=== PATIENT | female | born 1960 | race Caucasian/White ===

== ENCOUNTER 2019-05-03 07:21 | Emergency (ER) | payer OTHER ==
[2019-05-03 07:33] VITALS: BP 158/96; PULSE 75
[2019-05-03] MEDS ORDERED: Sodium Chloride 0.9% 10 ML Syringe FLUSH PRN (07:53)
[2019-05-03] MEDS ORDERED: Ondansetron 4 MG/2 ML SDV IVPUSH ONE (07:55)
[2019-05-03] MEDS ORDERED: fentaNYL 100 MCG/2 ML SDV IVPUSH ONE (07:55)
--- NOTE | 2019-05-03 07:57 | EDM.PDOC ---
ED HPI GENERAL MEDICAL PROBLEM - General Chief Complaint: Abdominal Pain Stated Complaint: ABD PAIN Time Seen by Provider: 05/03/19 07:48 Source of Information: Reports: Patient, Family, RN Notes Reviewed History Limitations: Reports: No Limitations - History of Present Illness INITIAL COMMENTS - FREE TEXT/NARRATIVE: 58-year-old female presents to the emergency department today complaint of abdominal pain, she stated since has developed over the last 24 hours it will wax and wane can be quite intense rates her pain 10 out of 10. She is nauseated no vomiting she still passing gas does have a past surgical history of a cholecystectomy as well as a tubal ligation. abominal Pain Score (Numeric/FACES): 7 - Related Data Allergies Allergy/AdvReac Type Severity Reaction Status Date / Time cephalexin monohydrate Allergy Cannot Verified 05/03/19 07:35 [From Keflex] Remember erythromycin base Allergy Cannot Verified 05/03/19 07:35 [Erythromycin Base] Remember lisinopril Allergy Other Verified 05/03/19 07:35 Penicillins Allergy Cannot Verified 05/03/19 07:35 Remember Home Meds: Home Meds NK [No Known Home Meds] 10/05/18 [History] Past Medical History Cardiovascular History: Reports: Heart Murmur, Hypertension Gastrointestinal History: Reports: Bowel Obstruction, Chronic Constipation, Colon Polyp 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: Musculoskeletal History: Reports: Back Pain, Chronic Endocrine/Metabolic History: Reports: Obesity/BMI 30+ - Infectious Disease History Infectious Disease History: Reports: Chicken Pox, Shingles - Past Surgical History Cardiovascular Surgical History: Reports: None GI Surgical History: Reports: Cholecystectomy, Colonoscopy, Polypectomy Female Surgical History: Reports: Tubal Ligation Endocrine Surgical History: Reports: None Musculoskeletal Surgical History: Reports: None Dermatological Surgical History: Reports: None Social & Family History - Tobacco Use Smoking Status *Q: Never Smoker - Caffeine Use Caffeine Use: Reports: Coffee - Recreational Drug Use Recreational Drug Use: No ED ROS GENERAL - Review of Systems Review Of Systems: See Below Constitutional: Denies: Fever, Chills HEENT: Reports: No Symptoms Respiratory: Reports: No Symptoms Cardiovascular: Reports: No Symptoms GI/Abdominal: Reports: Abdominal Pain, Flatus, Nausea. Denies: Constipation, Diarrhea, Vomiting : Reports: No Symptoms Musculoskeletal: Reports: No Symptoms Skin: Reports: No Symptoms Neurological: Reports: No Symptoms ED EXAM, GI/ABD - Physical Exam Exam: See Below Exam Limited By: No Limitations General Appearance: Alert, WD/WN, No Apparent Distress Respiratory/Chest: No Respiratory Distress, Lungs Clear, Normal Breath Sounds, No Accessory Muscle Use, Chest Non-Tender Cardiovascular: Regular Rate, Rhythm, No Murmur GI/Abdominal Exam: Normal Bowel Sounds, Soft, No Organomegaly, No Distention, Guarding, Tender (Epigastric) Course - Vital Signs Last Recorded V/S: Last Vital Signs Temp 98.5 F 05/03/19 07:34 Pulse 75 05/03/19 07:34 Resp 20 05/03/19 07:34 BP 158/96 H 05/03/19 07:34 Pulse Ox 94 L 05/03/19 07:34 - Orders/Labs/Meds Orders: Active Orders 24 hr Category Date Time Status Peripheral IV Care [RC] . DIRECTED Care 05/03/19 07:54 Active Lactated Ringers [Ringers, Lactated] 1,000 ml Med 05/03/19 08:00 Active IV ASDIRECTED Sodium Chloride 0.9% [Normal Saline] 83 ml Med 05/03/19 08:15 Active IV ASDIRECTED Sodium Chloride 0.9% [Saline Flush] Med 05/03/19 07:53 Active 10 ml FLUSH ASDIRECTED PRN Peripheral IV Insertion Adult [OM.PC] Urgent Oth 05/03/19 07:53 Ordered Medication Orders Lactated Ringer's (Ringers, Lactated) 1,000 mls @ 999 mls/hr IV ASDIRECTED ANNALISE Last Admin: 05/03/19 08:09 Dose: 999 mls/hr Sodium Chloride (Normal Saline) 83 mls @ 3.5 mls/sec IV ASDIRECTED ANNALISE Last Admin: 05/03/19 08:18 Dose: 3.5 mls/sec Sodium Chloride (Saline Flush) 10 ml FLUSH ASDIRECTED PRN PRN Reason: Keep Vein Open Last Admin: 05/03/19 08:09 Dose: 10 ml Labs: Laboratory Tests 05/03/19 05/03/19 05/03/19 Range/Units 07:53 08:08 08:08 WBC 4.1 L (4.5-11.0) K/uL RBC 4.78 (3.30-5.50) M/uL Hgb 14.4 (12.0-15.0) g/dL Hct 42.6 (36.0-48.0) % MCV 89 (80-98) fL MCH 30 (27-31) pg MCHC 34 (32-36) % Plt Count 220 (150-400) K/uL Neut % (Auto) 52 (36-66) % Lymph % (Auto) 33 (24-44) % [place] % (Auto) 10 H (2-6) % Eos % (Auto) 4 (2-4) % Baso % (Auto) 1 (0-1) % Sodium 141 (140-148) mmol/L Potassium 4.5 (3.6-5.2) mmol/L Chloride 105 (100-108) mmol/L Carbon Dioxide 27 (21-32) mmol/L Anion Gap 9.0 (5.0-14.0) mmol/L BUN 13 (7-18) mg/dL Creatinine 0.7 (0.6-1.0) mg/dL Est Cr Clr Drug Dosing 87.29 mL/min Estimated GFR (MDRD) > 60 (>60) Glucose 108 H (74-106) mg/dL Lactic Acid (0.4-2.0) mmol/L Calcium 9.3 (8.5-10.1) mg/dL Total Bilirubin 0.4 (0.2-1.0) mg/dL AST 23 (15-37) U/L ALT 44 (12-78) U/L Alkaline Phosphatase 62 (46-116) U/L Troponin I < 0.017 (0.000-0.056) ng/mL Total Protein 6.9 (6.4-8.2) g/dL Albumin 3.7 (3.4-5.0) g/dL Globulin 3.2 (2.3-3.5) g/dL Albumin/Globulin Ratio 1.2 (1.2-2.2) Lipase 106 (73-393) U/L Urine Color Yellow Urine Appearance Slightly cloudy Urine pH 7.0 (4.5-8.0) Ur Specific [place] 1.010 (1.008-1.030) Urine Protein Negative (NEGATIVE) mg/dL Urine Glucose (UA) Normal (NEGATIVE) mg/dL Urine Ketones Negative (NEGATIVE) mg/dL Urine Occult Blood Trace (NEGATIVE) Urine Nitrite Negative (NEGATIVE) Urine Bilirubin Negative (NEGATIVE) Urine Urobilinogen Normal (NORMAL) mg/dL Ur Leukocyte Esterase Small (NEGATIVE) Urine RBC 0-5 (0-5) Urine WBC 5-10 H (0-5) Ur Epithelial Cells Moderate Amorphous Sediment Not seen Urine Bacteria Few Urine Mucus Not seen 05/03/19 Range/Units 08:08 WBC (4.5-11.0) K/uL RBC (3.30-5.50) M/uL Hgb (12.0-15.0) g/dL Hct (36.0-48.0) % MCV (80-98) fL MCH (27-31) pg MCHC (32-36) % Plt Count (150-400) K/uL Neut % (Auto) (36-66) % Lymph % (Auto) (24-44) % [place] % (Auto) (2-6) % Eos % (Auto) (2-4) % Baso % (Auto) (0-1) % Sodium (140-148) mmol/L Potassium (3.6-5.2) mmol/L Chloride (100-108) mmol/L Carbon Dioxide (21-32) mmol/L Anion Gap (5.0-14.0) mmol/L BUN (7-18) mg/dL Creatinine (0.6-1.0) mg/dL Est Cr Clr Drug Dosing mL/min Estimated GFR (MDRD) (>60) Glucose (74-106) mg/dL Lactic Acid 0.9 (0.4-2.0) mmol/L Calcium (8.5-10.1) mg/dL Total Bilirubin (0.2-1.0) mg/dL AST (15-37) U/L ALT (12-78) U/L Alkaline Phosphatase (46-116) U/L Troponin I (0.000-0.056) ng/mL Total Protein (6.4-8.2) g/dL Albumin (3.4-5.0) g/dL Globulin (2.3-3.5) g/dL Albumin/Globulin Ratio (1.2-2.2) Lipase (73-393) U/L Urine Color Urine Appearance Urine pH (4.5-8.0) Ur Specific [place] (1.008-1.030) Urine Protein (NEGATIVE) mg/dL Urine Glucose (UA) (NEGATIVE) mg/dL Urine Ketones (NEGATIVE) mg/dL Urine Occult Blood (NEGATIVE) Urine Nitrite (NEGATIVE) Urine Bilirubin (NEGATIVE) Urine Urobilinogen (NORMAL) mg/dL Ur Leukocyte Esterase (NEGATIVE) Urine RBC (0-5) Urine WBC (0-5) Ur Epithelial Cells Amorphous Sediment Urine Bacteria Urine Mucus Meds: Medications Generic Name Dose Route Start Last Admin Trade Name Freq PRN Reason Stop Dose Admin Lactated Ringer's 1,000 mls @ 999 mls/hr 05/03/19 08:00 05/03/19 08:09 Ringers, Lactated IV 999 mls/hr ASDIRECTED ANNALISE Administration Sodium Chloride 83 mls @ 3.5 mls/sec 05/03/19 08:15 05/03/19 08:18 Normal Saline IV 3.5 mls/sec ASDIRECTED ANNALISE Administration Sodium Chloride 10 ml 05/03/19 07:53 05/03/19 08:09 Saline Flush FLUSH 10 ml ASDIRECTED PRN Administration Keep Vein Open Discontinued Medications Generic Name Dose Route Start Last Admin Trade Name Freq PRN Reason Stop Dose Admin Fentanyl 50 mcg 05/03/19 07:55 05/03/19 08:09 Sublimaze IVPUSH 05/03/19 07:56 50 mcg ONETIME ONE Administration Iopamidol 142 ml 05/03/19 08:02 05/03/19 08:18 Isovue-300 IV 05/03/19 08:03 142 ml ONETIME ONE Administration Ondansetron HCl 4 mg 05/03/19 07:55 05/03/19 08:08 Zofran IVPUSH 05/03/19 07:56 4 mg ONETIME ONE Administration Departure - Departure Time of Disposition: 09:02 Disposition: Home, Self-Care 01 Condition: Fair Clinical Impression: Abdominal pain Qualifiers: Abdominal location: epigastric Qualified Code(s): R10.13 - Epigastric pain - Discharge Information Instructions: Abdominal Pain, Adult, [id number] Referrals: Lebron Bryson MD [Primary Care Provider] - Forms: ED Department Discharge Additional Instructions: Continue with regular medications, Please followup with your primary care provider in 3-5 days if not better, please call return to the emergency department with worsening of symptoms. - My Orders Last 24 Hours: My Active Orders 05/03/19 07:53 Sodium Chloride 0.9% [Saline Flush] 10 ml FLUSH ASDIRECTED PRN Peripheral IV Insertion Adult [OM.PC] Urgent 05/03/19 07:54 Peripheral IV Care [RC] . DIRECTED 05/03/19 08:00 Lactated Ringers [Ringers, Lactated] 1,000 ml IV ASDIRECTED 05/03/19 08:15 Sodium Chloride 0.9% [Normal Saline] 83 ml IV ASDIRECTED - Assessment/Plan Last 24 Hours: My Active Orders 05/03/19 07:53 Sodium Chloride 0.9% [Saline Flush] 10 ml FLUSH ASDIRECTED PRN Peripheral IV Insertion Adult [OM.PC] Urgent 05/03/19 07:54 Peripheral IV Care [RC] . DIRECTED 05/03/19 08:00 Lactated Ringers [Ringers, Lactated] 1,000 ml IV ASDIRECTED 05/03/19 08:15 Sodium Chloride 0.9% [Normal Saline] 83 ml IV ASDIRECTED Plan: Assessment Acuity = acute Site and laterality = epigastric pain Etiology = unclear etiology suspicious for GERD Manifestations = none Location of injury = Home Lab values = CBC, CMP, troponin, CT scan of the abdomen, urinalysis unremarkable Plan She had some relief with fentanyl and Zofran provided in the ED I did offer her a GI cocktail which she declined, follow-up with her primary care in the next 3- 5 days for reevaluation This note was dictated using [employer] voice recognition software please call with any questions on syntax or grammar.
[2019-05-03] MEDS ORDERED: Lactated Ringers 1,000 ML IV SCH (08:00)
[2019-05-03] MEDS ORDERED: Iopamidol 500 ML BOTTLE IV ONE (08:02)
--- NOTE | 2019-05-03 08:42 | CRLCT ---
HISTORY: Epigastric abdominal pain. TECHNIQUE: Intravenous contrast enhanced CT of the abdomen and pelvis. 140 mL of Isovue-300 intravenous contrast administered. COMPARISON: No prior. FINDINGS: Prior cholecystectomy. Dilatation of the extrahepatic bile duct and mild prominence of the intrahepatic biliary ductal system may relate to postcholecystectomy reservoir effect though may be correlated with LFTs. No liver mass. Spleen and right adrenal gland are normal. Mild thickening of the left adrenal gland. No focal pancreatic abnormality or acute peripancreatic inflammatory change. Symmetric nephrograms. No renal mass or hydronephrosis. No obstructive urinary calculus. Urinary bladder does not appear overly distended. Pelvic calcifications compatible with phleboliths. - No small bowel obstruction. No appendicitis. No diverticulitis. No fluid collection or free air. No abdominal aortic aneurysm. - Degenerative changes of the hips and sacroiliac joints. Degenerative changes of the spine. No acute fractures. - No consolidation within the lung bases nor pleural effusion. IMPRESSION: 1. No specific identified cause of the patient`s pain. 2. Changes of prior cholecystectomy. Dilatation of the biliary system may relate to postcholecystectomy reservoir effect though may be correlated with LFTs. 3. No hydronephrosis or obstructive urinary calculus. 4. No diverticulitis, appendicitis or bowel obstruction. Dictated by Sanjay Contreras MD @ 05/03/2019 8:39:51 AM Please note that all CT scans at this facility use dose modulation, iterative reconstruction, and/or weight-based dosing when appropriate to reduce radiation dose to as low as reasonably achievable. Dictated by: Sanjay Contreras MD @ 05/03/2019 08:39:59 (Electronically Signed)
== END 2019-05-03 09:17 | disposition home or self-care (01) ==
LOC: JP.ED 07:21
DX: R10.13 Epigastric pain (principal); I10 Essential (primary) hypertension; E66.9 Obesity, unspecified; Z68.32 Body mass index [BMI] 32.0-32.9, adult; Z88.0 Allergy status to penicillin; Z88.8 Allergy status to other drugs, medicaments and biological substances; Z88.1 Allergy status to other antibiotic agents
CPT/HCPCS: 36415; 74177; 80053; 81001; 83605; 83690; 84484; 85025; 96361; 96374; 96375; 99284; J2405; J3010; J7030; J7120; Q9967

== ENCOUNTER 2019-05-04 06:33 | Observation (INO) | payer OTHER ==
[2019-05-04] MEDS ORDERED: Ondansetron 4 MG/2 ML SDV IVPUSH ONE (07:29)
[2019-05-04] MEDS ORDERED: Sodium Chloride 0.9% 1,000 ML IV SCH ×2 (07:30→09:15)
[2019-05-04] MEDS ORDERED: HYDROmorphone 0.5 MG/0.5 ML Syringe IVPUSH ONE ×2 (07:30→10:09)
--- NOTE | 2019-05-04 08:08 | EDM.PDOC ---
ED HPI GENERAL MEDICAL PROBLEM - General Chief Complaint: Abdominal Pain Stated Complaint: ABD PAIN RADIATING TO BACK Time Seen by Provider: 05/04/19 08:05 Source of Information: Reports: Patient History Limitations: Reports: No Limitations - History of Present Illness INITIAL COMMENTS - FREE TEXT/NARRATIVE: pt arrived with pain in the epigastric area going around to the left side and into her back She has had a vincent about 15 years ago. She did have a common duct stone at that time. She has been under alot of stress with work and her family. Onset: Other ( started the nite before and comes and goes. She did pass some hard stool. ) Duration: Hour(s): Location: Reports: Abdomen Associated Symptoms: Reports: Nausea/Vomiting Left Abdomen Pain Score (Numeric/FACES): 3 - Related Data Allergies Allergy/AdvReac Type Severity Reaction Status Date / Time cephalexin monohydrate Allergy Cannot Verified 05/04/19 07:05 [From Keflex] Remember erythromycin base Allergy Cannot Verified 05/04/19 07:05 [Erythromycin Base] Remember lisinopril Allergy Other Verified 05/04/19 07:05 Penicillins Allergy Cannot Verified 05/04/19 07:05 Remember Home Meds: Home Meds NK [No Known Home Meds] 10/05/18 [History] Past Medical History Cardiovascular History: Reports: Heart Murmur, Hypertension Gastrointestinal History: Reports: Bowel Obstruction, Chronic Constipation, Colon Polyp 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: Musculoskeletal History: Reports: Back Pain, Chronic Endocrine/Metabolic History: Reports: Obesity/BMI 30+ - Infectious Disease History Infectious Disease History: Reports: Chicken Pox, Measles, Mumps, Shingles - Past Surgical History Cardiovascular Surgical History: Reports: None GI Surgical History: Reports: Cholecystectomy, Colonoscopy, Polypectomy Female Surgical History: Reports: Tubal Ligation Endocrine Surgical History: Reports: None Musculoskeletal Surgical History: Reports: None Dermatological Surgical History: Reports: None Social & Family History - Tobacco Use Smoking Status *Q: Former Smoker Years of Tobacco use: 5 Packs/Tins Daily: 0.5 Used Tobacco, but Quit: Yes Month/Year Tobacco Last Used: 08/2000 Tobacco Use Comment: social smoker not daily cannot remember when quit - Caffeine Use Caffeine Use: Reports: Coffee - Recreational Drug Use Recreational Drug Use: No ED ROS GENERAL - Review of Systems Review Of Systems: See Below Constitutional: Reports: Decreased Appetite HEENT: Reports: No Symptoms Respiratory: Reports: No Symptoms Cardiovascular: Reports: No Symptoms Endocrine: Reports: No Symptoms GI/Abdominal: Reports: Abdominal Pain, Decreased Appetite, Nausea, Vomiting : Reports: No Symptoms Musculoskeletal: Reports: No Symptoms Skin: Reports: No Symptoms ED EXAM, GI/ABD - Physical Exam Exam: See Below Text/Narrative:: pt arrived with severe abdomanal pain once again. She vomited during the nite and was very uncomfortable. She had a pain level of a 8 on arrival. Exam Limited By: No Limitations General Appearance: Alert, Severe Distress, Other (pupils are equal and reactive. ) Ears: Normal TMs Nose: Normal Inspection Throat/Mouth: Normal Inspection Head: Atraumatic Neck: Normal Inspection Respiratory/Chest: No Respiratory Distress Cardiovascular: Regular Rate, Rhythm GI/Abdominal Exam: Other ( tender in the epigastric area and left upper abdoman. She is tender but not guarded. ) (Female) Exam: Deferred Rectal (Female) Exam: Deferred Back Exam: Normal Inspection Extremities: Normal Inspection Neurological: Alert, Oriented, Normal Cognition Psychiatric: Anxious, Other ( uncomfortable. ) Course - Vital Signs Last Recorded V/S: Last Vital Signs Temp 36.8 C 05/04/19 07:18 Pulse 60 05/04/19 08:51 Resp 14 05/04/19 08:51 BP 142/81 H 05/04/19 08:51 Pulse Ox 94 L 05/04/19 08:51 - Orders/Labs/Meds Orders: Active Orders 24 hr Category Date Time Status Sodium Chloride 0.9% [Normal Saline] 1,000 ml Med 05/04/19 07:30 Active IV ASDIRECTED Sodium Chloride 0.9% [Normal Saline] 1,000 ml Med 05/04/19 09:15 Ordered IV ASDIRECTED Medication Orders Sodium Chloride (Normal Saline) 1,000 mls @ 999 mls/hr IV ASDIRECTED ANNALISE Last Admin: 05/04/19 07:34 Dose: 999 mls/hr Sodium Chloride (Normal Saline) 1,000 mls @ 999 mls/hr IV ASDIRECTED ANNALISE Labs: Laboratory Tests 05/04/19 05/04/19 05/04/19 Range/Units 07:32 07:40 07:40 WBC 4.5 (4.5-11.0) K/uL RBC 4.77 (3.30-5.50) M/uL Hgb 14.2 (12.0-15.0) g/dL Hct 41.7 (36.0-48.0) % MCV 87 (80-98) fL MCH 30 (27-31) pg MCHC 34 (32-36) % Plt Count 216 (150-400) K/uL Neut % (Auto) 61 (36-66) % Lymph % (Auto) 26 (24-44) % [place] % (Auto) 9 H (2-6) % Eos % (Auto) 3 (2-4) % Baso % (Auto) 0 (0-1) % Sodium (140-148) mmol/L Potassium (3.6-5.2) mmol/L Chloride (100-108) mmol/L Carbon Dioxide (21-32) mmol/L Anion Gap (5.0-14.0) mmol/L BUN (7-18) mg/dL Creatinine (0.6-1.0) mg/dL Est Cr Clr Drug Dosing mL/min Estimated GFR (MDRD) (>60) Glucose (74-106) mg/dL Calcium (8.5-10.1) mg/dL Total Bilirubin (0.2-1.0) mg/dL AST (15-37) U/L ALT (12-78) U/L Alkaline Phosphatase (46-116) U/L C-Reactive Protein 0.01 (0.0-0.3) mg/dL Total Protein (6.4-8.2) g/dL Albumin (3.4-5.0) g/dL Globulin (2.3-3.5) g/dL Albumin/Globulin Ratio (1.2-2.2) Amylase (25-115) U/L Lipase (73-393) U/L Urine Color Yellow Urine Appearance Clear Urine pH 5.0 (4.5-8.0) Ur Specific [place] 1.025 (1.008-1.030) Urine Protein Negative (NEGATIVE) mg/dL Urine Glucose (UA) Normal (NEGATIVE) mg/dL Urine Ketones Negative (NEGATIVE) mg/dL Urine Occult Blood Negative (NEGATIVE) Urine Nitrite Negative (NEGATIVE) Urine Bilirubin Negative (NEGATIVE) Urine Urobilinogen Normal (NORMAL) mg/dL Ur Leukocyte Esterase Negative (NEGATIVE) Urine RBC 0-5 (0-5) Urine WBC 0-5 (0-5) Ur Epithelial Cells Many Amorphous Sediment Rare Urine Bacteria Not seen Urine Mucus Not seen 05/04/19 05/04/19 Range/Units 07:40 08:04 WBC (4.5-11.0) K/uL RBC (3.30-5.50) M/uL Hgb (12.0-15.0) g/dL Hct (36.0-48.0) % MCV (80-98) fL MCH (27-31) pg MCHC (32-36) % Plt Count (150-400) K/uL Neut % (Auto) (36-66) % Lymph % (Auto) (24-44) % [place] % (Auto) (2-6) % Eos % (Auto) (2-4) % Baso % (Auto) (0-1) % Sodium 138 L (140-148) mmol/L Potassium 4.2 (3.6-5.2) mmol/L Chloride 103 (100-108) mmol/L Carbon Dioxide 29 (21-32) mmol/L Anion Gap 10.2 (5.0-14.0) mmol/L BUN 9 (7-18) mg/dL Creatinine 0.8 (0.6-1.0) mg/dL Est Cr Clr Drug Dosing 77.75 mL/min Estimated GFR (MDRD) > 60 (>60) Glucose 99 (74-106) mg/dL Calcium 9.2 (8.5-10.1) mg/dL Total Bilirubin 0.5 (0.2-1.0) mg/dL AST 22 (15-37) U/L ALT 42 (12-78) U/L Alkaline Phosphatase 63 (46-116) U/L C-Reactive Protein (0.0-0.3) mg/dL Total Protein 6.9 (6.4-8.2) g/dL Albumin 3.7 (3.4-5.0) g/dL Globulin 3.2 (2.3-3.5) g/dL Albumin/Globulin Ratio 1.2 (1.2-2.2) Amylase 35 (25-115) U/L Lipase 123 (73-393) U/L Urine Color Urine Appearance Urine pH (4.5-8.0) Ur Specific [place] (1.008-1.030) Urine Protein (NEGATIVE) mg/dL Urine Glucose (UA) (NEGATIVE) mg/dL Urine Ketones (NEGATIVE) mg/dL Urine Occult Blood (NEGATIVE) Urine Nitrite (NEGATIVE) Urine Bilirubin (NEGATIVE) Urine Urobilinogen (NORMAL) mg/dL Ur Leukocyte Esterase (NEGATIVE) Urine RBC (0-5) Urine WBC (0-5) Ur Epithelial Cells Amorphous Sediment Urine Bacteria Urine Mucus Meds: Medications Generic Name Dose Route Start Last Admin Trade Name Freq PRN Reason Stop Dose Admin Sodium Chloride 1,000 mls @ 999 mls/hr 05/04/19 07:30 05/04/19 07:34 Normal Saline IV 999 mls/hr ASDIRECTED ANNALISE Administration Sodium Chloride 1,000 mls @ 999 mls/hr 05/04/19 09:15 Normal Saline IV ASDIRECTED ANNALISE Discontinued Medications Generic Name Dose Route Start Last Admin Trade Name Freq PRN Reason Stop Dose Admin Al Hydroxide/Mg Hydroxide 15 0 ml 05/04/19 08:22 05/04/19 08:51 ml/ Lidocaine HCl 15 ml PO 05/04/19 08:23 30 ml ONETIME ONE Administration Hydromorphone HCl 0.5 mg 05/04/19 07:30 05/04/19 07:46 Dilaudid IVPUSH 05/04/19 07:31 0.5 mg ONETIME ONE Administration Ondansetron HCl 4 mg 05/04/19 07:29 05/04/19 07:47 Zofran IVPUSH 05/04/19 07:30 4 mg ONETIME ONE Administration Pantoprazole Sodium 40 mg 05/04/19 08:58 05/04/19 09:12 Protonix Iv IVPUSH 05/04/19 08:59 40 mg ONETIME ONE Administration - Re-Assessments/Exams Free Text/Narrative Re-Assessment/Exam: 05/04/19 09:16 pt had repeat lab workk. She did not have blood in the urine, her liver enzymes are normal, Her pancreatic enzymes are normal. Her crp is not elevated. She had a cat scan yesterday which was un remarkable. Departure - Departure Time of Disposition: 09:18 Disposition: Admitted As Inpatient 65 Condition: Fair Clinical Impression: Abdominal pain Qualifiers: Abdominal location: epigastric Qualified Code(s): R10.13 - Epigastric pain - Discharge Information Referrals: Lebron Bryson MD [Primary Care Provider] - Forms: ED Department Discharge Care Plan Goals: admit to Dr bonilla. - My Orders Last 24 Hours: My Active Orders 05/04/19 07:30 Sodium Chloride 0.9% [Normal Saline] 1,000 ml IV ASDIRECTED 05/04/19 09:15 Sodium Chloride 0.9% [Normal Saline] 1,000 ml IV ASDIRECTED - Assessment/Plan Last 24 Hours: My Active Orders 05/04/19 07:30 Sodium Chloride 0.9% [Normal Saline] 1,000 ml IV ASDIRECTED 05/04/19 09:15 Sodium Chloride 0.9% [Normal Saline] 1,000 ml IV ASDIRECTED
[2019-05-04] MEDS ORDERED: Alum Hydrox/Mag Hydrox/Simeth 15 ML, Lidocaine 2% 15 ML PO ONE ×2 (08:22)
[2019-05-04] MEDS ORDERED: Pantoprazole 40 MG Vial IVPUSH ONE (08:58)
--- NOTE | 2019-05-04 09:51 | CRLCR ---
CHEST 1 VIEW AP INDICATION: Left upper abdominal pain and short of breath IMPRESSION: Normal heart size and vascular pattern. Lungs are clear of focal opacities. No pneumothorax or pleural abnormality. Dictated by Ricardo Walsh MD @ May 04 2019 9:47AM Signed by Dr. Ricardo Walsh @ May 04 2019 9:49AM
--- NOTE | 2019-05-04 10:38 | PCM.HP ---
H&P History of Present Illness - General Date of Service: 05/04/19 Admit Problem/Dx: Admission Diagnosis/Problem Admission Diagnosis/Problem Epigastric pain Source of Information: Patient History Limitations: Reports: No Limitations - History of Present Illness Initial Comments - Free Text/Narative: CC: my stomach hurts HPI: Stephy presents to the emergency room today with persistent epigastric abdominal pain. Pain started more than 48 hours ago and has persisted at a moderately severe level. She describes burning severe epigastric pain that radiates to her back. Pain is relatively constant though she does have some shooting pains that are even more intense. She hasn't found anything to help the pain and has tried narcotics, wyrc-der-gfdeoxc medications, famotidine and a GI cocktail this morning. Nothing seems to make the pain worse. She had 2 pieces of toast eat last night but has not had anything for 2 days prior to that. Oral intake of fluids has been poor. She is under a lot of stress. She does not have a history of ulcers. She has had some nausea but no vomiting. No fevers. No shortness of breath. No change in bowel or bladder habits. No recent travel, suspect food ingestion or other sick family members at home. Workup in the emergency room today included normal laboratory testing. Workup yesterday included normal laboratory testing as well as a normal CT scan of the abdomen and pelvis. Patient will be admitted for pain control and expedited workup with her severe pain. Left Abdomen Pain Score (Numeric/FACES): 3 - Related Data Allergies/Adverse Reactions: Allergies Allergy/AdvReac Type Severity Reaction Status Date / Time cephalexin monohydrate Allergy Cannot Verified 05/04/19 07:05 [From Keflex] Remember erythromycin base Allergy Cannot Verified 05/04/19 07:05 [Erythromycin Base] Remember lisinopril Allergy Other Verified 05/04/19 07:05 Penicillins Allergy Cannot Verified 05/04/19 07:05 Remember Home Medications: Home Meds NK [No Known Home Meds] 10/05/18 [History] Past Medical History Cardiovascular History: Reports: Heart Murmur, Hypertension Gastrointestinal History: Reports: Bowel Obstruction, Chronic Constipation, Colon Polyp 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 History: Reports: None 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: Musculoskeletal History: Reports: Back Pain, Chronic Endocrine/Metabolic History: Reports: Obesity/BMI 30+ - Infectious Disease History Infectious Disease History: Reports: Chicken Pox, Measles, Mumps, Shingles - Past Surgical History Cardiovascular Surgical History: Reports: None GI Surgical History: Reports: Cholecystectomy, Colonoscopy, Polypectomy Female Surgical History: Reports: Tubal Ligation Endocrine Surgical History: Reports: None Musculoskeletal Surgical History: Reports: None Dermatological Surgical History: Reports: None Social & Family History - Family History GI: Reports: PUD (mother) - Tobacco Use Smoking Status *Q: Former Smoker Years of Tobacco use: 5 Packs/Tins Daily: 0.5 Used Tobacco, but Quit: Yes Month/Year Tobacco Last Used: 08/2000 Tobacco Use Comment: social smoker not daily cannot remember when quit - Caffeine Use Caffeine Use: Reports: Coffee - Alcohol Use Alcohol Use History: Yes - Recreational Drug Use Recreational Drug Use: No H&P Review of Systems - Review of Systems: Review Of Systems: See Below Free Text/Narrative: A complete 12 point review of systems was obtained. Pertinent positives and negatives are noted in the history of present illness. All other systems were reviewed and were negative except as noted. Exam - Exam Exam: See Below - Vital Signs Vital Signs: Last Vital Signs Temp 36.8 C 05/04/19 07:18 Pulse 58 L 05/04/19 09:20 Resp 14 05/04/19 08:51 BP 164/97 H 05/04/19 09:20 Pulse Ox 94 L 05/04/19 08:51 Weight: 94.7 kg - Exam Quality Assessment: No: Supplemental Oxygen General: Alert, Oriented, Cooperative, Mild Distress HEENT: Conjunctiva Clear, Mucosa Moist & Ley[place]. No: Scleral Icterus Neck: Supple, Trachea Midline. No: Lymphadenopathy Lungs: Clear to Auscultation, Normal Respiratory Effort Cardiovascular: Regular Rate, Regular Rhythm GI/Abdominal Exam: Normal Bowel Sounds, Soft, No Distention, Tender ( epigastrium ) Extremities: No Pedal Edema. No: Increased Warmth Peripheral Pulses: 2+: Dorsalis Pedis (L), Dorsalis Pedis (R) Skin: Warm, Dry Neuro Extensive - Mental Status: Alert, Oriented x3, Nl Response to Commands Neuro Extensive - Motor, Sensory, Reflexes: No: Dysarthria, Abnormal Motor, Tremor Psychiatric: Alert, Normal Affect - Patient Data Lab Results Last 24 hrs: Laboratory Results - last 24 hr 05/04/19 05/04/19 05/04/19 Range/Units 07:32 07:40 07:40 WBC 4.5 (4.5-11.0) K/uL RBC 4.77 (3.30-5.50) M/uL Hgb 14.2 (12.0-15.0) g/dL Hct 41.7 (36.0-48.0) % MCV 87 (80-98) fL MCH 30 (27-31) pg MCHC 34 (32-36) % Plt Count 216 (150-400) K/uL Neut % (Auto) 61 (36-66) % Lymph % (Auto) 26 (24-44) % Andrew % (Auto) 9 H (2-6) % Eos % (Auto) 3 (2-4) % Baso % (Auto) 0 (0-1) % Sodium (140-148) mmol/L Potassium (3.6-5.2) mmol/L Chloride (100-108) mmol/L Carbon Dioxide (21-32) mmol/L Anion Gap (5.0-14.0) mmol/L BUN (7-18) mg/dL Creatinine (0.6-1.0) mg/dL Est Cr Clr Drug Dosing mL/min Estimated GFR (MDRD) (>60) Glucose (74-106) mg/dL Calcium (8.5-10.1) mg/dL Total Bilirubin (0.2-1.0) mg/dL AST (15-37) U/L ALT (12-78) U/L Alkaline Phosphatase (46-116) U/L C-Reactive Protein 0.01 (0.0-0.3) mg/dL Total Protein (6.4-8.2) g/dL Albumin (3.4-5.0) g/dL Globulin (2.3-3.5) g/dL Albumin/Globulin Ratio (1.2-2.2) Amylase (25-115) U/L Lipase (73-393) U/L Urine Color Yellow Urine Appearance Clear Urine pH 5.0 (4.5-8.0) Ur Specific [place] 1.025 (1.008-1.030) Urine Protein Negative (NEGATIVE) mg/dL Urine Glucose (UA) Normal (NEGATIVE) mg/dL Urine Ketones Negative (NEGATIVE) mg/dL Urine Occult Blood Negative (NEGATIVE) Urine Nitrite Negative (NEGATIVE) Urine Bilirubin Negative (NEGATIVE) Urine Urobilinogen Normal (NORMAL) mg/dL Ur Leukocyte Esterase Negative (NEGATIVE) Urine RBC 0-5 (0-5) Urine WBC 0-5 (0-5) Ur Epithelial Cells Many Amorphous Sediment Rare Urine Bacteria Not seen Urine Mucus Not seen 05/04/19 05/04/19 Range/Units 07:40 08:04 WBC (4.5-11.0) K/uL RBC (3.30-5.50) M/uL Hgb (12.0-15.0) g/dL Hct (36.0-48.0) % MCV (80-98) fL MCH (27-31) pg MCHC (32-36) % Plt Count (150-400) K/uL Neut % (Auto) (36-66) % Lymph % (Auto) (24-44) % Andrew % (Auto) (2-6) % Eos % (Auto) (2-4) % Baso % (Auto) (0-1) % Sodium 138 L (140-148) mmol/L Potassium 4.2 (3.6-5.2) mmol/L Chloride 103 (100-108) mmol/L Carbon Dioxide 29 (21-32) mmol/L Anion Gap 10.2 (5.0-14.0) mmol/L BUN 9 (7-18) mg/dL Creatinine 0.8 (0.6-1.0) mg/dL Est Cr Clr Drug Dosing 77.75 mL/min Estimated GFR (MDRD) > 60 (>60) Glucose 99 (74-106) mg/dL Calcium 9.2 (8.5-10.1) mg/dL Total Bilirubin 0.5 (0.2-1.0) mg/dL AST 22 (15-37) U/L ALT 42 (12-78) U/L Alkaline Phosphatase 63 (46-116) U/L C-Reactive Protein (0.0-0.3) mg/dL Total Protein 6.9 (6.4-8.2) g/dL Albumin 3.7 (3.4-5.0) g/dL Globulin 3.2 (2.3-3.5) g/dL Albumin/Globulin Ratio 1.2 (1.2-2.2) Amylase 35 (25-115) U/L Lipase 123 (73-393) U/L Urine Color Urine Appearance Urine pH (4.5-8.0) Ur Specific [place] (1.008-1.030) Urine Protein (NEGATIVE) mg/dL Urine Glucose (UA) (NEGATIVE) mg/dL Urine Ketones (NEGATIVE) mg/dL Urine Occult Blood (NEGATIVE) Urine Nitrite (NEGATIVE) Urine Bilirubin (NEGATIVE) Urine Urobilinogen (NORMAL) mg/dL Ur Leukocyte Esterase (NEGATIVE) Urine RBC (0-5) Urine WBC (0-5) Ur Epithelial Cells Amorphous Sediment Urine Bacteria Urine Mucus Result Diagrams: 05/04/19 07:40 05/04/19 07:40 Imaging Impressions Last 24 hrs: CT abdomen and pelvis from 05/03 - images personally reviewed - no intraabdominal pathology, organs appear normal, no free air *Q Meaningful Use (ADM) - VTE Risk Assess *Q Each Risk Factor Represents 1 Point: Age 41 - 59 years, Obesity ( BMI > 25 kg/m2 ) Total Score 1 Point Risk Factors: 2 Each Risk Factor Represents 2 Points: None Total Score 2 Point Risk Factors: 0 Each Risk Factor Represents 3 Points: None Total Score 3 Point Risk Factors: 0 Each Risk Factor Represents 5 Points: None Total Score 5 Point Risk Factors: 0 Venous Thromboembolism Risk Factor Score *Q: 2 - Problem List (1) Epigastric abdominal pain SNOMED Code(s): 08706901 ICD Code: R10.13 - EPIGASTRIC PAIN Status: Acute Current Visit: Yes Problem List Initiated/Reviewed/Updated: Yes Orders Last 24hrs: Active Orders 24 hr Category Date Time Status Patient Status Manage Transfer [TRANSFER] Routine ADT 05/04/19 10:31 Ordered Sodium Chloride 0.9% [Normal Saline] 1,000 ml Med 05/04/19 07:30 Active IV ASDIRECTED Sodium Chloride 0.9% [Normal Saline] 1,000 ml Med 05/04/19 09:15 Active IV ASDIRECTED Resuscitation Status Routine Resus Stat 05/04/19 10:32 Ordered Medication Orders Sodium Chloride (Normal Saline) 1,000 mls @ 999 mls/hr IV ASDIRECTED [facility] Last Admin: 05/04/19 07:34 Dose: 999 mls/hr Sodium Chloride (Normal Saline) 1,000 mls @ 999 mls/hr IV ASDIRECTED [facility] Last Admin: 05/04/19 10:08 Dose: 999 mls/hr Assessment/Plan Comment:: ASSESSMENT AND PLAN - Acute epigastric abdominal pain - laboratory studies and CT scan imaging unremarkable. Ulcer disease versus gastritis seem to be the most likely. Vitals are stable. She is not responding to recommended outpatient therapy. She has received a GI cocktail and IV pantoprazole in the emergency room as well as narcotic pain medication. -IV fluids for hydration -Symptomatic management of pain and nausea -IV pantoprazole -EGD in the morning with Dr. Kahn Maintenance issues - - DVT prophylaxis - mechanical - GI prophylaxis - PPI - Nutrition - clear liquids today, nothing by mouth after midnight - Rodas catheter - not indicated CODE STATUS - full code Admission justification - patient will be referred observation status for pain control and expedited workup with severe epigastric pain. Disposition - I would anticipate discharge to home after the hospital stay Primary care physician - Hawk Beckett M.D.
[2019-05-04] MEDS ORDERED: HYDROmorphone 1 MG/ML Syringe IVPUSH PRN (11:37)
[2019-05-04] MEDS ORDERED: LORazepam 2 MG/ML SDV IVPUSH PRN (11:37)
[2019-05-04] MEDS ORDERED: Ondansetron 4 MG Tab.DIS PO PRN (11:37)
[2019-05-04] MEDS ORDERED: Magnesium Hydroxide 400 MG/5 ML Susp 30 ML Cup PO PRN (11:37)
[2019-05-04] MEDS: Dextrose 5%-0.45% NaCl 1,000 ML IV SCH (11:59)
[2019-05-04] MEDS: Ondansetron 4 MG/2 ML SDV IV PRN ×2 (13:45→19:42)
[2019-05-04] MEDS: HYDROmorphone 0.5 MG/0.5 ML Syringe IVPUSH PRN ×2 (16:47→19:44)
[2019-05-04] MEDS: Pantoprazole 40 MG Vial IV SCH (21:38)
[2019-05-05] MEDS: Dextrose 5%-0.45% NaCl 1,000 ML IV SCH (00:45)
[2019-05-05] MEDS: HYDROmorphone 0.5 MG/0.5 ML Syringe IVPUSH PRN ×2 (06:21→12:17)
[2019-05-05] MEDS ORDERED: Midazolam 1 MG/ML 2 ML SDV ONE (09:52)
[2019-05-05] MEDS ORDERED: Propofol 200 MG/20 ML SDV ONE (09:52)
[2019-05-05] MEDS ORDERED: fentaNYL 100 MCG/2 ML SDV ONE (09:52)
[2019-05-05] MEDS: Pantoprazole 40 MG Vial IV SCH ×2 (10:52→21:36)
[2019-05-05] MEDS ORDERED: Calcium Carbonate 500 MG Tab.Chew PO PRN (11:31)
[2019-05-05] MEDS ORDERED: oxyCODONE 5 MG Tab PO PRN (13:28)
--- NOTE | 2019-05-05 13:29 | PCM.PN ---
- General Info Date of Service: 05/05/19 Subjective Update: no acute events overnight. Pain is a little bit better today but still has a fair amount of pain. No fevers. No nausea. EGD today showed mild antral gastritis. Tolerated the small amount of regular food for lunch today. Functional Status: Reports: Pain Controlled - Review of Systems General: Denies: Fever Gastrointestinal: Reports: Abdominal Pain - Patient Data Vitals - Most Recent: Last Vital Signs Temp 36.8 C 05/05/19 11:30 Pulse 63 05/05/19 11:30 Resp 16 05/05/19 11:30 BP 113/71 05/05/19 11:30 Pulse Ox 94 L 05/05/19 11:30 Weight - Most Recent: 94.7 kg I&O - Last 24 Hours: Intake & Output 05/04/19 05/05/19 05/05/19 22:59 06:59 14:59 Intake Total 1350 Balance 1350 Med Orders - Current: Current Medications Acetaminophen (Tylenol) 650 mg PO Q4H PRN PRN Reason: Pain (Mild 1-3)/fever Calcium Carbonate/Glycine (Tums) 500 mg PO Q2H PRN PRN Reason: STOMACH ACID Hydromorphone HCl (Dilaudid) 0.5 mg IVPUSH Q2H PRN PRN Reason: Pain Last Admin: 05/05/19 12:17 Dose: 0.5 mg Dextrose/Sodium Chloride (Dextrose 5%-1/2 Ns) 1,000 mls @ 75 mls/hr IV ASDIRECTED [facility] Last Admin: 05/05/19 00:45 Dose: 75 mls/hr Lorazepam (Ativan) 0.5 mg IVPUSH Q4H PRN PRN Reason: Nausea/Vomiting Last Admin: 05/04/19 21:37 Dose: 0.5 mg Magnesium Hydroxide (Milk Of Magnesia) 30 ml PO Q12H PRN PRN Reason: Constipation Ondansetron HCl (Zofran Odt) 4 mg PO Q6H PRN PRN Reason: Nausea able to take PO Ondansetron HCl (Zofran) 4 mg IV Q6H PRN PRN Reason: Nausea/Vomiting Last Admin: 05/04/19 19:42 Dose: 4 mg Pantoprazole Sodium (Protonix Iv) 40 mg IV Q12H [facility] Last Admin: 05/05/19 10:52 Dose: 40 mg Senna/Docusate Sodium (Senna Plus) 1 tab PO BID PRN PRN Reason: Constipation Discontinued Medications Al Hydroxide/Mg Hydroxide 15 (ml/ Lidocaine HCl 15 ml) 0 ml PO ONETIME ONE Stop: 05/04/19 08:23 Last Admin: 05/04/19 08:51 Dose: 30 ml Fentanyl (Sublimaze) Confirm Administered Dose 100 mcg .ROUTE .STK-MED ONE Stop: 05/05/19 09:53 Hydromorphone HCl (Dilaudid) 0.5 mg IVPUSH ONETIME ONE Stop: 05/04/19 07:31 Last Admin: 05/04/19 07:46 Dose: 0.5 mg Hydromorphone HCl (Dilaudid) 0.5 mg IVPUSH ONETIME ONE Stop: 05/04/19 10:10 Last Admin: 05/04/19 10:13 Dose: 0.5 mg Hydromorphone HCl (Dilaudid) 0.5 mg IVPUSH Q2H PRN PRN Reason: Pain Last Admin: 05/04/19 13:44 Dose: 0.5 mg Sodium Chloride (Normal Saline) 1,000 mls @ 999 mls/hr IV ASDIRECTED [facility] Last Admin: 05/04/19 07:34 Dose: 999 mls/hr Sodium Chloride (Normal Saline) 1,000 mls @ 999 mls/hr IV ASDIRECTED [facility] Last Admin: 05/04/19 10:08 Dose: 999 mls/hr Midazolam HCl (Versed 1 Mg/Ml) Confirm Administered Dose 2 mg .ROUTE .STK-MED ONE Stop: 05/05/19 09:53 Ondansetron HCl (Zofran) 4 mg IVPUSH ONETIME ONE Stop: 05/04/19 07:30 Last Admin: 05/04/19 07:47 Dose: 4 mg Pantoprazole Sodium (Protonix Iv) 40 mg IVPUSH ONETIME ONE Stop: 05/04/19 08:59 Last Admin: 05/04/19 09:12 Dose: 40 mg Propofol (Diprivan 20 Ml) Confirm Administered Dose 200 mg .ROUTE .STK-MED ONE Stop: 05/05/19 09:53 - Exam Quality Assessment: No: Supplemental Oxygen General: Alert, Oriented, Cooperative, No Acute Distress Lungs: Normal Respiratory Effort GI/Abdominal Exam: Soft, No Distention Extremities: No Pedal Edema Skin: Warm, Dry Psy/Mental Status: Alert, Normal Affect - Problem List & Annotations (1) Epigastric abdominal pain SNOMED Code(s): 12580332 Code(s): R10.13 - EPIGASTRIC PAIN Status: Acute Current Visit: Yes - Problem List Review Problem List Initiated/Reviewed/Updated: Yes - My Orders Last 24 Hours: My Active Orders 05/04/19 13:55 HYDROmorphone [Dilaudid] 0.5 mg IVPUSH Q2H PRN 05/04/19 21:00 Pantoprazole [ProTONIX IV] 40 mg IV Q12H 05/05/19 13:28 oxyCODONE 5 mg PO Q4H PRN 05/06/19 07:00 UGI wo KUB [CR] Routine - Plan Plan:: ASSESSMENT AND PLAN - Acute epigastric abdominal pain - laboratory studies and CT scan imaging unremarkable. EGD showed mild antral gastritis which doesn't seem quite significant enough to account for her pain though pain is improving. also noted was some residual bile in the stomach. No risk factors for gastroparesis. She may need an MRCP if symptoms do not continue to improve. -upper GI series in the morning -saline lock IV -Symptomatic management of pain and nausea -twice daily proton pump inhibitor -additional pain control as needed Maintenance issues - - DVT prophylaxis - mechanical - GI prophylaxis - PPI - Nutrition - soft bland and boring foods with a regular diet Admission justification - patient will be referred observation status for pain control and expedited workup with severe epigastric pain. Disposition - I would anticipate discharge to home after the hospital stay Primary care physician - Hawk Beckett M.D.
[2019-05-05] MEDS: Acetaminophen 325 MG Tab PO PRN (21:37)
[2019-05-06] MEDS ORDERED: Iopamidol 612 MG/ML 50 ML SDV PO PRN (07:16)
[2019-05-06] MEDS: Acetaminophen 325 MG Tab PO PRN (07:42)
[2019-05-06 07:46] VITALS: BP 156/72; PULSE 71
--- NOTE | 2019-05-06 08:35 | CRLCR ---
INDICATION: Abdominal pain. TECHNIQUE: Supine abdomen of following oral 50 cc nonionic contrast with immediate 15 minutes and 45 minutes delayed images. IMPRESSION : Transit to the colon in 45 minutes with no signs of obstruction. FINDINGS: Three images of the abdomen supine. Contrast in the stomach and small bowel and colon. No signs for obstruction. Normal caliber. Gallbladder surgical clips. Large amount of colonic stool. Dictated by Ricardo Walsh MD @ May 06 2019 8:33AM Signed by Dr. Ricardo Walsh @ May 06 2019 8:33AM
[2019-05-06] MEDS: Pantoprazole 40 MG Vial IV SCH (09:54)
--- NOTE | 2019-05-06 10:03 | PCM.DCSUM1 ---
Discharge Summary - Hospital Course Brief History: Healthy 58-year-old female with remote history of cholecystectomy who presented with acute epigastric abdominal pain. She was admitted for expedited workup with unremarkable emergency room workup. Diagnosis: Stroke: No - Discharge Data Discharge Date: 05/06/19 Discharge Disposition: Home, Self-Care 01 Condition: Good - Discharge Diagnosis/Problem(s) (1) Epigastric abdominal pain SNOMED Code(s): 39639227 ICD Code: R10.13 - EPIGASTRIC PAIN Status: Acute (2) Antral gastritis SNOMED Code(s): 4617390 ICD Code: K29.50 - UNSPECIFIED CHRONIC GASTRITIS WITHOUT BLEEDING Status: Acute - Patient Summary/Data Consults: Consultations 05/04/19 11:37 Consult to Physician [CONS] Routine Consulting Provider: Chintan Kahn Courtesy Call Completed to Consulting Physician: Yes Reason for Consult: epigastric pain Person Notified: DE ANDA Date Notified: 05/04/19 Special Instructions: EGD in am Hospital Course: Stephy presented to the emergency room with 2 days of progressive epigastric abdominal pain. She had been seen in the emergency room the day prior and had a negative workup. Repeat laboratory studies on the day of presentation were also entirely unremarkable. Patient did have significant pain and required multiple doses of IV pain medications. She was admitted to the hospital for pain control and expedited workup. There were no acute events overnight. Vital signs were all stable other than a low-grade temperature elevation once in the evening. The morning after admission she had an EGD which showed some very mild antral gastritis. This was not felt to be severe enough to be the cause for her pain. Also noted on the EGD was some bile in the stomach. Patient remained hospitalized a second night for additional pain control and upper GI study the next morning. On the second morning of hospitalization the patient did have an upper GI which was unremarkable. There is no evidence for obstruction and transit time was very normal. Pain has improved but had not resolved. Pain has been controlled using only acetaminophen and she has not had narcotics in more than 12 hours. In the morning of discharge evaluation by Dr. Kahn did raise some concern for a potential inflammatory nodule in left upper quadrant versus possibly a very small hernia. This was not reproducible later in the morning. The patient feels well and has tolerated a light diet. She feels well enough to go home at this time. I think she is safe to go home. Were going to treat her like the gastritis was the cause of all of her troubles. She will be on a proton pump inhibitor twice daily for 2 months. Atypical viral infection could also be considered given her low-grade temperature elevations in the evening. If she has additional episodes we may need to consider exploratory laparotomy or laparoscopy to look for inflammatory abdominal wall nodules or a hernia. Vitals have been stable and she is safe for discharge at this time. - Patient Instructions Diet: Regular Diet as Tolerated Activity: As Tolerated Driving: May Drive Today Showering/Bathing: May Shower Notify Provider of: Fever, Increased Pain Other/Special Instructions: 1. You were in the hospital for evaluation of epigastric abdominal pain. We did not definitively determine a cause for your pain but gastritis (inflammation in your stomach) is suspected. Dr. Kahn did notice a painful nodule in the left upper part of your abdomen. I would recommend that we treat you for gastritis because this seems to be the most likely cause for your pain. Treatment will consist of pantoprazole 40 mg by mouth twice daily for 2 months. If you have increasing pain or if that painful nodule in the left upper quadrant returns we may need to reassess and consider an exploratory surgery to look for a nodule or a hernia. 2. Seek medical attention if you have fever greater than 101, severe abdominal pain or persistent vomiting. - Discharge Plan *PRESCRIPTION DRUG MONITORING PROGRAM REVIEWED*: Not Applicable *COPY OF PRESCRIPTION DRUG MONITORING REPORT IN PATIENT AR: Not Applicable Prescriptions/Med Rec: Pantoprazole Sodium 40 mg PO BIDAC #60 tablet. Home Medications: Home Meds Pantoprazole Sodium 40 mg PO BIDAC #60 tablet. 05/06/19 [Rx] Oxygen Therapy Mode: Room Air Patient Handouts: Gastritis, Adult, Pantoprazole tablets Referrals: Lebron Bryson MD [Primary Care Provider] - 05/12/19 1:00 pm (Please arrive 15 minutes early to register for your appointment.) - Discharge Summary/Plan Comment DC Time >30 min.: No - Patient Data Vitals - Most Recent: Last Vital Signs Temp 37.0 C 05/06/19 07:43 Pulse 71 05/06/19 07:43 Resp 16 05/06/19 07:43 BP 156/72 H 05/06/19 07:43 Pulse Ox 92 L 05/06/19 07:43 Weight - Most Recent: 94.7 kg I&O - Last 24 hours: Intake & Output 05/05/19 05/06/19 05/06/19 22:59 06:59 14:59 Intake Total 400 600 Balance 400 600 Med Orders - Current: Current Medications Acetaminophen (Tylenol) 650 mg PO Q4H PRN PRN Reason: Pain (Mild 1-3)/fever Last Admin: 05/06/19 07:42 Dose: 650 mg Calcium Carbonate/Glycine (Tums) 500 mg PO Q2H PRN PRN Reason: STOMACH ACID Last Admin: 05/05/19 17:42 Dose: 500 mg Hydromorphone HCl (Dilaudid) 0.5 mg IVPUSH Q2H PRN PRN Reason: Pain Last Admin: 05/05/19 12:17 Dose: 0.5 mg Lorazepam (Ativan) 0.5 mg IVPUSH Q4H PRN PRN Reason: Nausea/Vomiting Last Admin: 05/04/19 21:37 Dose: 0.5 mg Magnesium Hydroxide (Milk Of Magnesia) 30 ml PO Q12H PRN PRN Reason: Constipation Ondansetron HCl (Zofran Odt) 4 mg PO Q6H PRN PRN Reason: Nausea able to take PO Ondansetron HCl (Zofran) 4 mg IV Q6H PRN PRN Reason: Nausea/Vomiting Last Admin: 05/04/19 19:42 Dose: 4 mg Oxycodone HCl (Oxycodone) 5 mg PO Q4H PRN PRN Reason: Pain (moderate 4-6) Last Admin: 05/05/19 17:42 Dose: 5 mg Pantoprazole Sodium (Protonix Iv) 40 mg IV Q12H [facility] Last Admin: 05/06/19 09:54 Dose: 40 mg Senna/Docusate Sodium (Senna Plus) 1 tab PO BID PRN PRN Reason: Constipation Last Admin: 05/05/19 21:36 Dose: 1 tab Discontinued Medications Al Hydroxide/Mg Hydroxide 15 (ml/ Lidocaine HCl 15 ml) 0 ml PO ONETIME ONE Stop: 05/04/19 08:23 Last Admin: 05/04/19 08:51 Dose: 30 ml Fentanyl (Sublimaze) Confirm Administered Dose 100 mcg .ROUTE .STK-MED ONE Stop: 05/05/19 09:53 Hydromorphone HCl (Dilaudid) 0.5 mg IVPUSH ONETIME ONE Stop: 05/04/19 07:31 Last Admin: 05/04/19 07:46 Dose: 0.5 mg Hydromorphone HCl (Dilaudid) 0.5 mg IVPUSH ONETIME ONE Stop: 05/04/19 10:10 Last Admin: 05/04/19 10:13 Dose: 0.5 mg Hydromorphone HCl (Dilaudid) 0.5 mg IVPUSH Q2H PRN PRN Reason: Pain Last Admin: 05/04/19 13:44 Dose: 0.5 mg Sodium Chloride (Normal Saline) 1,000 mls @ 999 mls/hr IV ASDIRECTED [facility] Last Admin: 05/04/19 07:34 Dose: 999 mls/hr Sodium Chloride (Normal Saline) 1,000 mls @ 999 mls/hr IV ASDIRECTED [facility] Last Admin: 05/04/19 10:08 Dose: 999 mls/hr Dextrose/Sodium Chloride (Dextrose 5%-1/2 Ns) 1,000 mls @ 75 mls/hr IV ASDIRECTED [facility] Last Admin: 05/05/19 00:45 Dose: 75 mls/hr Iopamidol (Isovue-300 (61%)) 50 ml PO . DIRECTED PRN PRN Reason: RADIOLOGY EXAM Stop: 05/06/19 08:30 Last Admin: 05/06/19 07:37 Dose: 50 ml Midazolam HCl (Versed 1 Mg/Ml) Confirm Administered Dose 2 mg .ROUTE .STK-MED ONE Stop: 05/05/19 09:53 Ondansetron HCl (Zofran) 4 mg IVPUSH ONETIME ONE Stop: 05/04/19 07:30 Last Admin: 05/04/19 07:47 Dose: 4 mg Pantoprazole Sodium (Protonix Iv) 40 mg IVPUSH ONETIME ONE Stop: 05/04/19 08:59 Last Admin: 05/04/19 09:12 Dose: 40 mg Propofol (Diprivan 20 Ml) Confirm Administered Dose 200 mg .ROUTE .STK-MED ONE Stop: 05/05/19 09:53 - Exam Quality Assessment: Denies: Supplemental Oxygen General: Reports: Alert, Oriented, Cooperative, No Acute Distress Lungs: Reports: Normal Respiratory Effort GI/Abdominal Exam: Soft, Non-Tender, No Distention, No Mass. No: Guarding Extremities: No Pedal Edema Psy/Mental Status: Reports: Alert, Normal Affect
--- NOTE | 2019-05-07 12:44 | PN ---
DATE OF SERVICE: 05/06/2019 The patient continues to have quite a bit of pain in the area just below the costal margin on the left side. On examination, she does have a palpable grape-sized nodule which is where the pain actually appears to be coming from as pushing on that causes the discomfort she has been describing. This may be some sort of a neuroma related to previous laparoscopic trocar sites in that area or possibly a hernia. Plan will be to proceed with exploration of that abdominal wall, excision of the painful nodule, and other procedures as indicated based on the operative findings tomorrow morning. She is going to be getting upper GI x-ray and small-bowel follow-through to evaluate bile retention in the stomach today per Dr. Beckett. Potential risks of the procedure including bleeding, infection, and possibility that this may not be efficacious in terms of getting rid of the pain were all gone over, and the patient wishes to proceed. Chintan Kahn MD /[id number]
--- NOTE | 2019-05-15 11:17 | OR ---
DATE OF PROCEDURE: 05/05/2019 PREOPERATIVE DIAGNOSIS: Upper abdominal pain. POSTOPERATIVE DIAGNOSES: Upper abdominal pain associated with: 1. Moderate antral gastritis. 2. Moderate amount of retained bile in the stomach. OPERATIVE PROCEDURE: Esophagogastroduodenoscopy with biopsies of the antrum for CLOtest. ANESTHESIA: IV sedation. INDICATIONS FOR PROCEDURE: The patient was admitted with a picture of upper abdominal pain, particularly on the left side. As part of the workup, she is undergoing upper GI endoscopy. Potential risks including bleeding and perforation were discussed, and the patient wishes to proceed. DETAILS OF PROCEDURE: The patient was taken to the operating room and placed in a left lateral decubitus position. IV sedation was administered, after which the upper GI endoscope was passed orally through the length of the esophagus and into the stomach with retroflexion view of the fundus, and thereafter through the pyloric channel and into the proximal duodenum. Findings included normal hypopharynx, larynx, upper esophageal sphincter, and esophageal body. EG junction showed no significant inflammation or hiatal hernia. Within the stomach, there was a moderate amount of retained bile present. This was associated with moderate antral gastritis without erosions or ulcers. The area was simply reddened and edematous. The pyloric channel and duodenum to the junction of the third and fourth portions were unremarkable. At this point, biopsies were obtained from the antrum and sent for CLOtest for H. pylori. Minimal bleeding from the biopsy sites was seen and the procedure concluded. The patient was taken to the recovery room in satisfactory condition. Chintan Kahn MD /[id number]
== END 2019-05-06 10:45 | disposition home or self-care (01) ==
LOC: JP.ED 06:33 → JP.MS 10:31
PROVIDERS: ADMIT Internal Medicine; ATTEND Internal Medicine
DX: R10.13 Epigastric pain (principal); K29.70 Gastritis, unspecified, without bleeding; I10 Essential (primary) hypertension; Z88.0 Allergy status to penicillin; Z88.1 Allergy status to other antibiotic agents; Z90.49 Acquired absence of other specified parts of digestive tract; Z87.891 Personal history of nicotine dependence; Z79.899 Other long term (current) drug therapy
CPT/HCPCS: 36415; 43239; 71045; 74240; 80053; 81001; 82150; 83690; 85025; 86140; 87081; 96361; 96374; 96375; 96376; 99285; A9270; C9113; G0378; J1170; J2060; J2250; J2405; J2704; J3010; J7030; Q9967

== ENCOUNTER 2023-10-19 06:50 | Day surgery (SDC) | payer OTHER ==
[2023-10-19] MEDS ORDERED: Midazolam 1 MG/ML 2 ML SDV ONE (06:57)
[2023-10-19] MEDS ORDERED: Propofol 200 MG/20 ML SDV ONE ×2 (06:57→08:50)
[2023-10-19] MEDS ORDERED: fentaNYL 50 MCG/ML SDV ONE (06:57)
[2023-10-19] MEDS: Lactated Ringers 1,000 ML IV SCH (07:30)
[2023-10-19 10:13] VITALS: BP 155/86; PULSE 68
== END 2023-10-19 10:05 | disposition home or self-care (01) ==
LOC: JP.SDS 06:50
PROVIDERS: ATTEND Family Medicine
DX: Z12.11 Encounter for screening for malignant neoplasm of colon (principal); I10 Essential (primary) hypertension; E66.9 Obesity, unspecified; Z80.0 Family history of malignant neoplasm of digestive organs; Z68.29 Body mass index [BMI] 29.0-29.9, adult; Z88.1 Allergy status to other antibiotic agents
CPT/HCPCS: 45378; J2250; J2704; J3010; J7120